=== PATIENT | male | born 1950 | race Caucasian/White ===

== ENCOUNTER 2016-10-06 04:45 | Day surgery (SDC) | payer MEDICARE, OTHER ==
--- NOTE | ~2016-10-06 | OP ---
Record Of Operation [facility] [address] [place]. [address] NAME: MIRIAN HER : 48 STATUS : [facility]#: [id number] AGE: 65 ADM/REG DATE : 10/06/16 MR#: [id number] REPORT SERV DATE: 10/07/16 DICTATED BY: SAULO RODRIGUEZ DATE: 10/06/16 REPORT STATUS : Draft TRANSCRIBED BY: MODL DATE: 10/06/16 DATE OF PROCEDURE: 10/06/2016 PREOPERATIVE DIAGNOSES: 1. Herniated nucleus pulposus, central right L4-5. 2. Spinal stenosis, lateral recess, L4-5. POSTOPERATIVE DIAGNOSES: 1. Herniated nucleus pulposus, central right L4-5. 2. Spinal stenosis, lateral recess, L4-5. PROCEDURES: Right L4-5 hemilaminotomy, foraminotomy, and partial facetectomy with microdiskectomy. SURGEON: Saulo Rodriguez D.O. VICE PRESIDENT QUALITY IMPROVEMENT: Harry Larry. ANESTHESIA: General. ESTIMATED BLOOD LOSS: 10 mL. INDICATIONS FOR SURGERY: A 65-year-old male, with some degree of low back pain, buttock pain in the past, but had a recent in severe advancement of his overall complaints with severe pain in the buttock and leg. He is having intractable radiculopathy. It appears he had some preexisting spinal stenosis, which was somewhat problematic, but then had an acute herniation. All verified by MRI that has now pushed him over the edge with rather intractable radiculopathy and some weakness in the L5 innervated muscles. We tried conservative care which failed, MRI proves the above. He is brought to surgery as indicated. In the preop holding area, the patient was identified all questions were answered. The patient voiced understanding the risks, willingness to accept those, and requested to proceed with surgery. DESCRIPTION OF PROCEDURE: Antibiotic prophylaxis was given. Neurophysiology monitoring leads were inserted. The patient was brought to the operative suite. General anesthetic including endotracheal intubation was administered. Kevin catheter was necessary. He was placed prone on a Ronny spine frame. Bony prominences were carefully padded. Thoracolumbar spine was scrubbed with Hibiclens solution. DuraPrep was painted. Sterile drapes were applied. A small stab wound was carried out over the left posterior superior iliac spine. A percutaneous pin with navigational frame attached was inserted in the PSIS. Please note that because of the complexity of surgery, and the need to identify the correct level of surgery intraoperatively, as well as the desire to carry out the safest and most precise Record Of Operation [facility] [address] [place]. [address] NAME: IMRIAN HER : 48 STATUS : [facility]#: [id number] AGE: 65 ADM/REG DATE : 10/06/16 MR#: [id number] REPORT SERV DATE: 10/07/16 DICTATED BY: SAULO RODRIGUEZ DATE: 10/06/16 REPORT STATUS : Draft TRANSCRIBED BY: MODMichelle DATE: 10/06/16 dissection, I felt intraoperative navigation was mandatory. After registration of the navigational system, we used navigation to identify the L4-5 level. Just right of midline, a 2 cm skin incision was carried out. A blunt navigated probe was placed through the fascia and muscle and docked over the interlaminar space. Muscle dilator was inserted followed by placement of a tubular retractor attached to an arm mount on the table. The microscope was sterilely draped and used throughout the remainder of the remainder of the procedure. With navigational assistance, I identified the amount of lamina of L4, I wanted to remove inferiorly in order to reach the cephalad boundary of the disk space. I also determined the amount of medial facet joint, I needed to remove in order to reach the lateral aspect of the thecal sac. I removed the 30-40% of the inferior lamina of L4, and approximately 20% of medial facet joint. This was all done with a 3 mm amanda bur as well as a 2 mm Kerrison rongeur. The hypertrophied ligamentum DICTATION ENDS HERE SH/MODMichelle Saulo Rodriguez D.O. / [id number] CC: Rena Craft M.D.
--- NOTE | ~2016-10-06 | OP ---
Record Of Operation [facility] [place] [address] [place]. [address] NAME: MIRIAN HER : 48 STATUS : [facility]#: [id number] AGE: 65 ADM/REG DATE : 10/06/16 MR#: [id number] REPORT SERV DATE: 10/14/16 DICTATED BY: SAULO EMERSON DATE: 10/14/16 REPORT STATUS : Draft TRANSCRIBED BY: MODL DATE: 10/14/16 DATE OF PROCEDURE: ADDENDUM This was all done with a 3 mm amanda bur as well as a 2 mm Kerrison rongeur. The hypertrophied ligamentum flavum was removed completely decompressing the central canal and the lateral recess. The medial foramen was decompressed. No disk herniation was found on inspection of the disk space. Epidural hemostasis obtained with a bipolar cautery. Earlier, I had indicated there was no disk herniation. This was incorrect. There was a small to moderate-sized disc herniation which was removed with pituitary rongeur. The wound was irrigated. The retractor was removed. The fascial opening closed with a single interrupted #1 Vicryl suture. Subcutaneous tissue closed with 2-0 Vicryl sutures; 2-0 vertical mattress nylon suture was used for skin closure. Sterile dressings applied. The patient awakened, extubated, and taken to the recovery room in satisfactory condition having tolerated the procedure well. MARTIN/JACQUELINE Saulo Emerson D.O. / [id number] CC: Rena Craft M.D.
[~2016-10-06 04:45] MED LIST: ASA5GR PO; ASAB PO; BC POWDER OR; CORDARONE PO; COREG3 PO; GLUCOPHAGE1000 MG PO; LIPITOR40 PO; LIPITOR80 MG PO; LOP25 PO; METFORMIN; METFORMIN PO; NORCO1 TA1 PO; PLAVIX PO; PRILOSEC OTC20 MG PO; PRIN10 PO; VITAMIN B-121000 MC1 SL; Vitamin B-12
[2016-10-06 06:58] LABS: BUN (BLOOD UREA NITROGEN) 19 MG/DL (6-23); CALCIUM, SERUM 9.1 MG/DL (8.5-10.4); CHLORIDE, SERUM 107 MMOL/L (96-112); CO2 (CARBON DIOXIDE) 26 MMOL/L (24-34); CREATININE 1.17 MG/DL (0.70-1.30); GFR AFRICAN AMERICAN 75 ML/MIN (>=60); GFR NON AFRICAN AMERICAN 65 ML/MIN (>=60); GLUCOSE, SERUM 148 MG/DL (60-99); POTASSIUM, SERUM 4.5 MMOL/L (3.5-5.3); SODIUM, SERUM 138 MMOL/L (135-148)
== END 2016-10-06 11:24 | disposition home or self-care (01) ==
LOC: SDC 04:45
PROVIDERS: Orthopaedic Surgery Orthopaedic Surgery of the Spine
PROC: 01NB0ZZ Release Lumbar Nerve, Open Approach (ICD-10-PCS; principal; 2016-10-06 07:00)
PROC: 0SB20ZZ Excision of Lumbar Vertebral Disc, Open Approach (ICD-10-PCS; 2016-10-06 07:00)
DX: M51.16 Intervertebral disc disorders with radiculopathy, lumbar region (principal); M48.06 Spinal stenosis, lumbar region; I25.10 Atherosclerotic heart disease of native coronary artery without angina pectoris; I10 Essential (primary) hypertension; E11.9 Type 2 diabetes mellitus without complications; G51.0 Bell's palsy; K21.9 Gastro-esophageal reflux disease without esophagitis; K44.9 Diaphragmatic hernia without obstruction or gangrene; Z95.1 Presence of aortocoronary bypass graft; Z86.73 Personal history of transient ischemic attack (TIA), and cerebral infarction without residual deficits; Z79.82 Long term (current) use of aspirin; Z79.84 Long term (current) use of oral hypoglycemic drugs; Z79.899 Other long term (current) drug therapy; Z87.891 Personal history of nicotine dependence; Z86.711 Personal history of pulmonary embolism; Z87.442 Personal history of urinary calculi; Z98.890 Other specified postprocedural states
CPT/HCPCS: 80048; 82962; 85014; 85018; 88304; 88311; 93005; A9270-GY; J0690; J1170; J2250; J2274; J2405; J2710; J3010